=== PATIENT | female | born 1930 | race Caucasian/White ===

== ENCOUNTER 2018-07-14 09:07 | Emergency (ER) | payer MEDICARE ==
[2018-07-14 09:54] LABS: #Eosinphils 0.1 thou/uL (0.0-0.7); #Lymphocytes 2.3 thou/uL (1.20-3.40); #Monocytes 0.7 thou/uL (0.11-0.59); #Neutrophils 6.7 thou/uL (1.40-6.50); %Basophils 0.2 % (0.0-1.0); %Eosinophils 0.7 % (0.0-10.0); %Lymphocytes 23.6 % (21.0-51.0); %Monocytes 6.9 % (0.0-10.0); %Neutrophils 68.6 % (42.0-75.0); Hemoglobin 13.8 g/dL (12.0-16.0); Mean Corpuscular HGB CONC 33.4 g/dL (32.0-36.0); Mean Corpuscular Hemoglobin 29.6 pg (27.0-31.0); Mean Corpuscular Volume 88.6 fL (78.0-98.0); Mean Platelet Volume 7.6 fL (7.4-10.4); Platelet Count 239 thou/uL (130-400); RBC Distribution Width 13.7 % (11.5-14.5); Red Blood Cell (RBC) Count 4.65 mill/uL (4.20-5.40); White Blood Cell (WBC) Count 9.7 thou/uL (4.8-10.8)
[2018-07-14 10:15] LABS: Bilirubin Negative (Negative); Blood, Urine Small (Negative); Clarity CLOUDY (Clear); Glucose, Urine (Dipstick) Negative (Negative); Leukocyte Large (Negative); Nitrite Positive (Negative); Protein, Urine (Dipstick) Negative (Neg-Trace); Specific Gravity, Urine 1.008 (1.002-1.036); Urobilinogen 0.2 mg/dL (0.2-1.0); pH, Urine 6.5 (5.0-9.0)
[2018-07-14 10:18] LABS: Bacteria/HPF 4+ HPF (None Seen); Hyaline Casts/LPF 0-3 HYALINE CAST LPF (0-3 Hyaline); Squamous Epithelial None Seen HPF (0-3)
[2018-07-14 10:22] LABS: ALT (SGPT) 14 U/L (8-55); AST (SGOT) 15 U/L (5-34); Alkaline Phosphatase 90 U/L (40-150); Anion Gap 14 mmol/L (10-20); BUN (Urea Nitrogen) 20 mg/dL (9.8-20.1); Bilirubin, Total 0.4 mg/dL (0.2-1.2); CKMB 1.5 ng/mL (0-6.6); Calc. Creatinine Clearance 0 mL/min (70-130); Calcium 9.2 mg/dL (7.8-10.44); Carbon Dioxide 21 mmol/L (23-31); Chloride 108 mmol/L (98-107); Estimated GFR-MDRD 62; Globulin 3.4 g/dL (2.4-3.5); Glucose 134 mg/dL (83-110); Magnesium 2.1 mg/dL (1.6-2.6); Potassium 4.4 mmol/L (3.5-5.1); Protein, Total 7.4 g/dL (6.0-8.3); Sodium 139 mmol/L (136-145); Troponin I Less than 0.010 ng/mL (< 0.028)
--- NOTE | 2018-07-14 10:22 | RAD ---
CHEST PA AND LATERAL: History: 87-year-old female with history of malaise, vertigo, and URI. History of hypertension. FINDINGS: Heart size is normal. Atherosclerosis of the aorta. Pedicle screw and kevin stabilize the lumbar spine, incompletely seen on this study. There is some abnormal opacity in the region of the right renal upp er collecting system. If the patient has not had any prior intravenous contrast media, then I would p ropose that this is probably related to a large Staghorn calculus. IMPRESSION: No significant acute intrathoracic disease. Atherosclerosis of the aorta. Abnormal opacification of t he right renal upper collecting system, assuming that the patient has not had prior IV contrast, this probably represents a large Staghorn calculus. POS: [facility]
[2018-07-14] MEDS ORDERED: cefTRIAXone\\ROCEPHIN 2 GM VIAL ONE (10:28)
[2018-07-14] MEDS ORDERED: Metoprolol Tartrate 50 MG TAB ONE (10:29)
[2018-07-14] MEDS ORDERED: Metoprolol Tartrate 25 MG TAB ONE (10:44)
== END 2018-07-14 11:18 | disposition home or self-care (01) ==
LOC: ERS 09:07
DX: N39.0 Urinary tract infection, site not specified (principal); N20.0 Calculus of kidney; K21.9 Gastro-esophageal reflux disease without esophagitis; E78.5 Hyperlipidemia, unspecified; I10 Essential (primary) hypertension; Z79.899 Other long term (current) drug therapy
CPT/HCPCS: 36415; 71046; 80053; 81003; 81015; 82553; 83735; 84484; 85025; 93005; 96365; J0696

== ENCOUNTER 2018-07-15 10:13 | Inpatient (IN) | payer MEDICARE ==
[2018-07-15 10:52] LABS: #Basophils 0.1 thou/uL (0.0-0.2); #Eosinphils 0.2 thou/uL (0.0-0.7); #Lymphocytes 3.3 thou/uL (1.20-3.40); #Monocytes 0.8 thou/uL (0.11-0.59); #Neutrophils 4.9 thou/uL (1.40-6.50); %Basophils 0.9 % (0.0-1.0); %Monocytes 8.3 % (0.0-10.0); %Neutrophils 52.8 % (42.0-75.0); Hemoglobin 13.4 g/dL (12.0-16.0); Mean Corpuscular HGB CONC 31.9 g/dL (32.0-36.0); Mean Corpuscular Hemoglobin 27.8 pg (27.0-31.0); Mean Corpuscular Volume 87.4 fL (78.0-98.0); Mean Platelet Volume 7.3 fL (7.4-10.4); Platelet Count 251 thou/uL (130-400); RBC Distribution Width 12.9 % (11.5-14.5); Red Blood Cell (RBC) Count 4.81 mill/uL (4.20-5.40); White Blood Cell (WBC) Count 9.2 thou/uL (4.8-10.8)
[2018-07-15 11:16] LABS: ALT (SGPT) 13 U/L (8-55); AST (SGOT) 17 U/L (5-34); Albumin 3.9 g/dL (3.4-4.8); Alkaline Phosphatase 83 U/L (40-150); Anion Gap 13 mmol/L (10-20); BUN (Urea Nitrogen) 13 mg/dL (9.8-20.1); Bilirubin, Total 0.5 mg/dL (0.2-1.2); Calc. Creatinine Clearance 0 mL/min (70-130); Calcium 9.2 mg/dL (7.8-10.44); Carbon Dioxide 24 mmol/L (23-31); Chloride 106 mmol/L (98-107); Estimated GFR-MDRD 58; Globulin 3.4 g/dL (2.4-3.5); Glucose 134 mg/dL (83-110); Protein, Total 7.3 g/dL (6.0-8.3); Sodium 139 mmol/L (136-145)
[2018-07-15] MEDS ORDERED: Diltiazem 125 MG/25 ML ONE (11:32)
[2018-07-15 12:15] LABS: Magnesium 2.2 mg/dL (1.6-2.6)
[2018-07-15 12:19] LABS: CKMB 1.7 ng/mL (0-6.6); Troponin I Less than 0.010 ng/mL (< 0.028)
--- NOTE | 2018-07-15 12:26 | RAD ---
PORTABLE CHEST: HISTORY: Mental status post change. FINDINGS: Lungs are clear. No infiltrate or vascular congestion. Heart size upper normal. IMPRESSION: No acute lung process. POS: [facility]
--- NOTE | 2018-07-15 12:47 | CT ---
CT BRAIN WITHOUT CONTRAST: HISTORY: Dizziness, hypertension, altered mental status, slurred speech. FINDINGS: Slurred speech. FINDINGS: There are changes of chronic small-vessel ischemic disease in the periventricular white matter. The ventricular size is appropriate and the basilar cisterns patent. No evidence of infarct, hemorrhage, midline shift, or abnormal extraaxial fluid collections is seen The bony calvarium is intact. Ther e is mucosal disease in the paranasal sinuses. IMPRESSION: No CT evidence of acute intracranial process. POS: [facility]
[2018-07-15 14:45] LABS: Troponin I Less than 0.010 ng/mL (< 0.028)
[2018-07-15] MEDS ORDERED: Labetalol HCl 100 MG/20 ML VIAL SLOW IVP PRN (15:16)
[2018-07-15] MEDS ORDERED: cloNIDine 0.1 MG TAB PO PRN (15:16)
[2018-07-15] MEDS ORDERED: hydrALAZINE 20 MG/ML VIAL SLOW IVP PRN (15:16)
[2018-07-15] MEDS ORDERED: Senokot S 8.6-50 MG TAB PO PRN (15:20)
[2018-07-15] MEDS ORDERED: Calcium Carbonate 500 MG ChewTAB PO PRN (15:20)
[2018-07-15] MEDS ORDERED: Acetaminophen 325 MG TAB PO PRN (15:20)
[2018-07-15] MEDS ORDERED: Bisacodyl 5 MG TAB PO PRN (15:20)
[2018-07-15] MEDS ORDERED: HYDROcodone/Acetaminophen 5/325 mg Tablet PO PRN (15:20)
[2018-07-15] MEDS ORDERED: Ondansetron PF 4 MG/2 ML Vial IVP PRN (15:20)
--- NOTE | 2018-07-15 16:07 | HP ---
DATE OF ADMISSION: 07/15/2018 PRIMARY CARE PHYSICIAN: Out of town in [place]. CHIEF COMPLAINT: Dizziness, lightheadedness, generalized weakness, and slurred speech. HISTORY OF PRESENT ILLNESS: Ms. Park is a pleasant 87-year-old female with past medical history of coronary artery disease, status post multiple stents, was on Plavix, but does not like to take aspir in, who presented to the emergency room with above-mentioned complaints. History is mainly obtained by the patient herself. Electronic medical records were reviewed in entirety. Care discussed with 2 daughters at bedside. According to Ms. Park and her daughters, she has been feeling poorly for the last week and a half. She has been seen at her primary care physician's office in [place] and then later at Urgent Care. She has been treated for bacterial as well as viral sinusitis and URIs. She has been seen in the [facility] ent Care received a Z-Jered, one shot of steroids last week. She has been having on and off nasal mami estion and generalized weakness and dizziness. She also noted that her blood pressure has been running on the higher side. Normally, her blood pres sure is under better control, but for the last 2-3 days, it is 190s in the morning. She was seen in our emergency room yesterday for complaints of weakness and was found to have a urinary tract infecti on. She received Rocephin injection and was discharged on ciprofloxacin. Her metoprolol dose was in creased to 50 mg twice a day, but she took only 25 this morning. Her blood pressure was noticed to b e 216/92 yesterday. Today in the ER, her blood pressure systolic is still in the 190s. Her workup i ncluding a chest x-ray is rather unremarkable. CT scan of the brain is done in the ER which also machelle ws no acute changes. A chest x-ray done yesterday showed a staghorn calculus in the right upper jennifer l collecting system. She denies any chest pain, palpitation or shortness of breath. This morning her family noticed that she was having a hard time finding the words. The patient states that she knew what she is trying to say, but was having some difficulty getting those words out. She has no paresthesias or muscle weak ness. No vision changes, no ringing sensation. No headache, no nausea, vomiting. She is now being admitted to the hospital to rule out transient ischemic attack and management of unc ontrolled hypertension and treatment of UTI. PAST MEDICAL HISTORY: Hypertension and coronary artery disease status post stents x2. PAST SURGICAL HISTORY: Spinal surgery, cardiac stents total 6. SOCIAL HISTORY: She lives in [place] with her family. No history of drug, tobacco or alcohol abuse. FAMILY HISTORY: Significant for stroke in her brother and mother. Multiple family members with hype rtension. ALLERGIES: ADHESIVE BANDAGE. MEDICATIONS: Plavix 75 mg daily, Crestor 20 mg daily, metoprolol succinate 25 mg daily. REVIEW OF SYSTEMS: A 12-point review of systems was done, it is negative except for those mentioned in the history and physical. CODE STATUS: FULL CODE. Discussed with the patient. LABORATORY DATA: CBC is unremarkable. Serum chemistries unremarkable. Blood sugar 134, magnesium i s normal. Cardiac enzymes normal. Creatinine kinase is normal. Lipase normal. Chest x-ray by my v[facility] mcneil has no evidence to suggest any acute cardiopulmonary abnormality. CT scan of the brain is nega tive for any acute changes. No hemorrhage. A 12-lead EKG by my review shows normal sinus rhythm at 74 beats per minute. PHYSICAL EXAMINATION: VITAL SIGNS: Upon presentation to the ER today: Blood pressure 195/67, pulse of 78, respirations 19 , saturating 96% on room air, temperature 98.2. GENERAL: No acute distress, awake, alert x3. HEENT: Mucous membrane is moist and pink. No oropharyngeal exudate or erythema. Head is normocepha lic, atraumatic. Pupils equal, reactive to light and accommodation. Extraocular movement intact. NECK: Supple without any lymphadenopathy, JVD or bruit. CHEST: Clear to auscultation without any wheezing, rales or rhonchi. Rhythm is regular without any murmur, rubs or gallops. ABDOMEN: Soft, nontender, nondistended, positive bowel sounds. EXTREMITIES: Free of any cyanosis, clubbing, or edema. NEUROLOGIC: She has no slurring of speech at this time. However, some difficulty finding the words is noticed. She does not qualify to be called expressive aphasia. Tnumyo-ez-zeof testing is intact. Muscle strength is 5/5 in all 4 extremities. Sensation is intact. SKIN: Free of any rashes or bruises. IMPRESSION AND PLAN: 1. Slurred speech, transient ischemic attack cannot be ruled out. The patient definitely has multip le risk factors. She has received aspirin in the emergency room and we will continue that for now. We will obtain an MRI of the brain as well as carotid Doppler and transthoracic echocardiogram for st roke workup. She will continue her Crestor for now. We have also consulted Neurology for further re commendations. 2. Urinary tract infection. The patient was found to have a staghorn calculus on the right renal sy stem yesterday on the chest x-ray. We will get a renal ultrasound to further assess this. We will s tart her on IV antibiotics, namely ciprofloxacin and send the urine collected yesterday: for culture. 3. Uncontrolled hypertension and hypertensive urgency. Etiology is unclear. This can be precipitat ed by sinusitis or transient ischemic attack. At this time, we will add p.r.n. antihypertensives and restart her metoprolol at a higher dose of 50 mg twice a day. 4. History of coronary artery disease. Restart home medications and reconcile once confirmed. 5. Code status: FULL CODE. Discussed with the patient. DISPOSITION: Mrs. Park is currently being admitted to the hospital for TIA like symptoms and hyper tensive urgency. Further management will depend upon her clinical course, but estimated length of st ay at this time is less than 2 midnights.
[2018-07-15 16:56] VITALS: BMI 31.4
--- NOTE | 2018-07-15 16:58 | ULT ---
ULTRASOUND RETROPERITONEUM COMPLETE: (RENAL) 07/15/2018 HISTORY: An 87-year-old female with calculus of kidney. COMPARISON: No prior CTs or ultrasounds of the abdomen. FINDINGS: There are numerous hyperechoic foci in the right kidney, including moderate-sized ones in the renal p dilshad, with strong shadowing, plus much smaller ones in the regions of the right renal calices, at th e upper, mid, and lower poles. These are consistent with multiple calculi. No definite such calculu s is identified in the contralateral left kidney. Urinary bladder volume is 275 mL at the time of th is scan. Bladder wall thickness is normal. Bilateral ureteral jets are visualized. There is no hydr onephrosis. The right kidney is 9.5 x 4.5 x 5 cm. The left kidney is 9.5 x 4.5 x 5 cm. IMPRESSION: 1. Extensive right-sided nephrolithiasis (numerous right renal calculi). 2. No hydronephrosis. 3. Noncontrast CT of abdomen and pelvis would be much better able to demonstrate the degree of nephr olithiasis bilaterally. DAVID Trejo POS: [facility]
--- NOTE | 2018-07-15 17:00 | ULT ---
BILATERAL CAROTID DUPLEX ULTRASOUND INCLUDING COLOR AND SPECTRAL DOPPLER IMAGING: HISTORY: Slurred speech. TIA. FINDINGS: There is a visual plaque in the distal CCAs and proximal ICAs bilaterally. PSV right ICA is 89 cm per second. EDV is 24 cm per second. ICA/CCA ratio is 1. PSV LEFT ICA IS 93 cm per second. EDV is 23 cm per second. ICA/CCA ratio is 1.2. Vertebral flow is antegrade. IMPRESSION: 1. No hemodynamically significant stenosis. 2. Minimal increased velocities in both right and left external carotid arteries. 3. Bilateral visual plaque, evidence for carotid arterial vascular disease. POS: [facility]
[2018-07-15 18:08] LABS: Troponin I Less than 0.010 ng/mL (< 0.028)
--- NOTE | 2018-07-15 18:42 | CON ---
DATE OF CONSULTATION: 07/15/2018 IMPRESSION: 1. Transient ischemic attack with transient dysarthria and right facial droop. 2. Hypertension. 3. Recent urinary tract infection. 4. Diarrhea, likely secondary to new onset of treatment with antibiotics. PLAN: 1. Echocardiogram. 2. Review carotid Doppler. 3. Continue aspirin has been instituted. 4. Continue Plavix and statin as she came in with. Ms. Park is an 87-year-old white female with a known history of hypertension. She has had 2 episod es that both occurred in the morning. Her daughter reports that she saw right facial droop and assoc iated with slurred speech. She had difficulty maintaining her balance. She reported some numbness i n her right hand. Her symptoms lasted somewhere between 1 and 2 hourly. She came to the emergency r oom yesterday and was diagnosed with urinary tract infection. She was discharged home on antibiotics . This morning, she had a similar episode with approximately the same duration of symptoms. She was seen in the emergency room this morning and had a CT scan of the brain done which was unremarkable. She has had some labile hypertension recorded over the last 2 days. PAST MEDICAL HISTORY: As listed above. ALLERGIES: LATEX. SOCIAL HISTORY: No tobacco or alcohol use. FAMILY HISTORY: Noncontributory. MEDICATION LIST: Reviewed. REVIEW OF SYSTEMS: No complaint of headache, nausea, vomiting, vertigo, chest pain, shortness of true ath. PHYSICAL EXAMINATION: GENERAL: She is a well-nourished elderly lady, in no acute distress. VITAL SIGNS: Have not been recorded. HEENT: Pupils equal. Conjunctivae clear. Oropharynx clear. NECK: Supple. EXTREMITIES: No cyanosis, clubbing, or edema. NEUROLOGIC: She is alert and appropriate. Her speech is fluent and clear. Her exam is nonfocal. SUMMARY: Elderly lady with hypertension who presents with 2 similar episodes of transient right-side d weakness. I agree with starting her on aspirin. Her carotid ultrasound has been performed, but e results are pending. Echocardiogram has been ordered. I would be happy to follow up if you have any further questions.
[2018-07-15] MEDS: Heparin 5,000 UNITS/ML VIAL SC SCH (19:17)
[2018-07-15] MEDS: Metoprolol Tartrate 50 MG TAB PO SCH (19:17)
[2018-07-15] MEDS: Ciprofloxacin Lactate/D5W 200 MG in Premix Bag 1 BAG IVPB SCH (19:18)
[2018-07-16 05:29] LABS: #Basophils 0.1 thou/uL (0.0-0.2); #Eosinphils 0.2 thou/uL (0.0-0.7); #Neutrophils 4.1 thou/uL (1.40-6.50); %Basophils 0.8 % (0.0-1.0); %Eosinophils 1.8 % (0.0-10.0); %Lymphocytes 42.6 % (21.0-51.0); %Monocytes 10.3 % (0.0-10.0); %Neutrophils 44.4 % (42.0-75.0); Hemoglobin 13.2 g/dL (12.0-16.0); Mean Corpuscular HGB CONC 34.1 g/dL (32.0-36.0); Mean Corpuscular Hemoglobin 29.7 pg (27.0-31.0); Mean Corpuscular Volume 87.2 fL (78.0-98.0); Mean Platelet Volume 7.7 fL (7.4-10.4); Platelet Count 224 thou/uL (130-400); RBC Distribution Width 13.5 % (11.5-14.5); Red Blood Cell (RBC) Count 4.45 mill/uL (4.20-5.40); White Blood Cell (WBC) Count 9.3 thou/uL (4.8-10.8)
[2018-07-16 05:52] LABS: Anion Gap 13 mmol/L (10-20); BUN (Urea Nitrogen) 11 mg/dL (9.8-20.1); Calc. Creatinine Clearance 56 mL/min (70-130); Calcium 9.4 mg/dL (7.8-10.44); Carbon Dioxide 27 mmol/L (23-31); Chloride 107 mmol/L (98-107); Estimated GFR-MDRD 66; Glucose 111 mg/dL (83-110); Potassium 4.1 mmol/L (3.5-5.1); Sodium 143 mmol/L (136-145)
[2018-07-16] MEDS: Heparin 5,000 UNITS/ML VIAL SC SCH ×3 (08:26→21:02)
[2018-07-16] MEDS: Metoprolol Tartrate 50 MG TAB PO SCH ×2 (08:27→21:01)
[2018-07-16] MEDS: Aspirin 325 mg Enteric Coated Tablet PO SCH (08:27)
[2018-07-16] MEDS: Saccharomyces boulardii 250 MG CAP PO SCH (08:28)
[2018-07-16] MEDS: Ciprofloxacin Lactate/D5W 200 MG in Premix Bag 1 BAG IVPB SCH ×2 (08:28→21:02)
[2018-07-16] MEDS ORDERED: Clopidogrel Bisulfate 75 MG TAB PO SCH (11:45)
[2018-07-16] MEDS ORDERED: Rosuvastatin 20 MG TAB PO SCH (11:45)
--- NOTE | 2018-07-16 12:45 | MRI ---
MRI BRAIN WITHOUT CONTRAST: HISTORY: TIA. COMPARISON: A brain CT of prior day. FINDINGS: On the susceptibility weighted imaging sequence there are punctate foci of diffusion restriction conf irmed on the ADC map within the left felipe. This involves the anterior and posterior felipe from the de ep penetrating branches of the basilar artery. There are extensive microvascular ischemic changes throughout the subcortical and deep white matter. Prominent Virchow-Montgomery spaces bilaterally. No hydrocephalus. On the susceptibility weighted imaging sequence, there are no abnormal areas of he morrhage. 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 POS: [facility]
--- NOTE | 2018-07-16 13:37 | CT ---
CT ABDOMEN AND PELVIS WITHOUT CONTRAST STONE PROTOCOL: HISTORY: Urinary tract infection. Calculi. COMPARISON: Renal ultrasound of prior day. FINDINGS: There are calcified right infrahilar lymph nodes as well as calcified granuloma right lung base. No pericardial effusion. Moderate atherosclerotic plaque in the aorta. There is casting of the right renal collecting system with calcifications involving nearly the entire right-sided renal collecting system. No left-sided renal calculi are appreciated. No right-sided u reteral calculus is appreciated. No left-sided ureteral calculus is appreciated. No significant atrophy of the right kidney. Multiple calcified granulomas of the spleen. The pancreas, liver, and gallbladder have a relatively noncontrast appearance aside from multiple monae cified granulomas of the liver. No retroperitoneal adenopathy. No dilated loops of large or small bowel. Focal area of skin thickening over the right lower hemiabdomen. Appendix is felt to be visualized and is normal. No retroperitoneal adenopathy. Posterior spinal fusion hardware L3-L5. IMPRESSION: Near-complete casting of the right renal collecting system due to calculus, a very large single calcu aki. There is extension of calcification throughout the renal collecting system as well as the renal pelvis without significant hydronephrosis. No ureteral calculus. No left-sided renal calculus. Th e right renal collecting system casting indicates a staghorn calculus. POS: [facility]
--- NOTE | 2018-07-16 14:25 | PDOC.PN ---
- Subjective Encounter Start Date: 07/16/18 Encounter Start Time: 11:00 Subjective: f/u on CVA rule out -: Patient states weakness on her right side is worse today - Objective Resuscitation Status: Resuscitation Status FULL:Full Resuscitation Vital Signs & Weight: Vital Signs (12 hours) Temp Pulse Resp BP Pulse Ox 07/16/18 11:00 98 F 71 16 163/72 H 92 L 07/16/18 07:00 98.5 F 73 18 140/62 93 L 07/16/18 02:32 98.0 F 75 21 H 172/75 H 95 Weight Weight 72.847 kg I&O: 07/15/18 07/16/18 07/17/18 06:59 06:59 06:59 Intake Total 850 100 Output Total 1400 Balance -550 100 Result Diagrams: 07/16/18 04:50 07/16/18 04:50 Phys Exam - Physical Examination Constitutional: NAD HEENT: PERRLA, moist MMs Neck: no nodes, no JVD Respiratory: no wheezing, no rales, no rhonchi Cardiovascular: RRR, no significant murmur Gastrointestinal: soft, non-tender Musculoskeletal: no edema, pulses present right sided facial droop, slurred speech, weakness to right arm and leg Lymphatic: no nodes Psychiatric: normal affect, A&O x 3 Skin: no rash, normal turgor Dx/Plan (1) Left-sided cerebrovascular accident (CVA) Code(s): I63.9 - CEREBRAL INFARCTION, UNSPECIFIED Status: Acute (2) UTI (urinary tract infection) Status: Acute (3) Staghorn calculus Code(s): N20.0 - CALCULUS OF KIDNEY Status: Chronic (4) Hypertension Code(s): I10 - ESSENTIAL (PRIMARY) HYPERTENSION Status: Chronic - Plan -: MRI today showed multi-focal anterior/posterior left sided pontine infarct -: Changed to inpatient status, consulted stroke team -: Dr. Aguirre saw patient yesterday, is following -: Patient desires inpatient rehab, screening order entered UTI- will continue antibiotics, will await S/S for culture, has multiple calculi in right kidney, no evidence of obstruction Will continue to monitor VS and labs * .
--- NOTE | 2018-07-16 16:16 | PDOC.EVN ---
Event Note - Event Note Event Note: Reviewed chart, saw patient. Collaborated with Padma Obriant OFFSET ASSISTANT PRESS OPERATOR. Agree with assessment and plan as documented. Discussed with family, updated them.
[2018-07-17] MEDS: Aspirin 325 mg Enteric Coated Tablet PO SCH (09:33)
[2018-07-17] MEDS: Clopidogrel Bisulfate 75 MG TAB PO SCH (09:33)
[2018-07-17] MEDS: Heparin 5,000 UNITS/ML VIAL SC SCH ×2 (09:33→21:34)
[2018-07-17] MEDS: Metoprolol Tartrate 50 MG TAB PO SCH ×2 (09:33→21:34)
[2018-07-17] MEDS: Rosuvastatin 20 MG TAB PO SCH (09:33)
[2018-07-17] MEDS: Saccharomyces boulardii 250 MG CAP PO SCH (09:33)
[2018-07-17] MEDS: Ciprofloxacin Lactate/D5W 200 MG in Premix Bag 1 BAG IVPB SCH ×2 (09:33→21:34)
[2018-07-17 09:37] LABS: ALT (SGPT) 16 U/L (8-55); AST (SGOT) 23 U/L (5-34); Albumin 4.1 g/dL (3.4-4.8); Alkaline Phosphatase 90 U/L (40-150); Anion Gap 14 mmol/L (10-20); BUN (Urea Nitrogen) 14 mg/dL (9.8-20.1); Bilirubin, Total 0.6 mg/dL (0.2-1.2); Calc. Creatinine Clearance 50 mL/min (70-130); Calcium 9.4 mg/dL (7.8-10.44); Carbon Dioxide 23 mmol/L (23-31); Chloride 106 mmol/L (98-107); Estimated GFR-MDRD 58; Globulin 3.4 g/dL (2.4-3.5); Glucose 152 mg/dL (83-110); Magnesium 2.1 mg/dL (1.6-2.6); Potassium 4.1 mmol/L (3.5-5.1); Protein, Total 7.5 g/dL (6.0-8.3); Sodium 139 mmol/L (136-145)
--- NOTE | 2018-07-17 14:52 | PDOC.PN ---
- Subjective Encounter Start Date: 07/17/18 (f/u stroke) Encounter Start Time: 14:50 Subjective: Pt and family note increasing weakness, balance problems and worsening -: of speech - new today. Also noticed swelling of right arm and coughing - Objective Resuscitation Status: Resuscitation Status FULL:Full Resuscitation Vital Signs & Weight: Vital Signs (12 hours) Temp Pulse Pulse Resp BP BP BP 07/17/18 11:29 98.6 F 66 16 137/64 07/17/18 09:08 78 129/61 07/17/18 08:40 07/17/18 07:34 97.9 F 71 16 120/63 07/17/18 04:00 98.5 F 71 16 127/60 Pulse Ox 07/17/18 11:29 92 L 07/17/18 09:08 07/17/18 08:40 97 07/17/18 07:34 97 07/17/18 04:00 94 L Weight Weight 160 lb 9.6 oz I&O: 07/16/18 07/17/18 07/18/18 06:59 06:59 06:59 Intake Total 850 100 940 Output Total 1400 Balance -550 100 940 Result Diagrams: 07/16/18 04:50 07/17/18 08:47 EKG Reviewed by me: Yes (sinus 78, V tach 17 beats and 6 beats) Phys Exam - Physical Examination Constitutional: NAD Respiratory: no wheezing, no rales, no rhonchi, clear to auscultation bilateral Cardiovascular: RRR, no significant murmur Gastrointestinal: soft, non-tender, no distention, positive bowel sounds Musculoskeletal: no edema decreased strength RUE - 3+/5, and RLE 4-/5 no ankle clonus Deviation from normal: speech slowed Skin: no rash Dx/Plan (1) Stroke Code(s): I63.9 - CEREBRAL INFARCTION, UNSPECIFIED Status: Acute Qualifiers: CVA mechanism: occlusion Precerebral and cerebral artery: unspecified cerebral artery Qualified Code(s): I63.50 - Cerebral infarction due to unspecified occlusion or stenosis of unspecified cerebral artery (2) CAD (coronary artery disease) Code(s): I25.10 - ATHSCL HEART DISEASE OF [place] CORONARY ARTERY W/O ANG PCTRS Status: Chronic (3) UTI (urinary tract infection) Status: Acute Qualifiers: Urinary tract infection type: acute cystitis Hematuria presence: without hematuria Qualified Code(s): N30.00 - Acute cystitis without hematuria (4) Hypertension Code(s): I10 - ESSENTIAL (PRIMARY) HYPERTENSION Status: Chronic Qualifiers: Hypertension type: essential hypertension Qualified Code(s): I10 - Essential (primary) hypertension (5) Staghorn calculus Code(s): N20.0 - CALCULUS OF KIDNEY Status: Chronic (6) Tachyarrhythmia Code(s): R00.0 - TACHYCARDIA, UNSPECIFIED Status: Acute - Plan * worsening neurologic status - stat CT brain without contrast. With this result, will contact Dr. Aguirre * Pt is on dual anti-platelet therapy and statin * bp controlled * staghorn calculus with UTI - urology evaluation * Tachyarrhythmia - echo unremarkable, consult cardiology * RUE edema - mild - check ultrasound to rule out DVT * * dvt prophy - scd's. Given that pt is on dual antiplatelet therapy, I'm concerned about increasing the risk of bleeding with pharmacologic dvt prophy - will discuss with Dr. Aguirre * gi prophy - not indicated * code status full * * reviewed plan of care with patient/family, no questions or further needs at end of eval * pt remains at high risk in current condition * recommend hold on transfer to inpatient until Cardiology eval, Urology eval, and CT scan results with plan for stroke risk reduction. 21:35 - negative CT scan earlier. Called and discussed patient iwth Dr. Aguirre around 16:00 with regards to change reported in neuro status, CT results. He reports that it can be an evolving stroke. Discussed dual anti- platelet tx with plavix and aspirin - he recommends continuing it. Also discussed DVT prophy with heparin and the risks/benefits - in discussion the benefits outweigh the risks and started this back. Called and spoke with the patient's daughter around 17:30 all of the above. discussed that I'm uncertain of how her neurologic status will go - if it will get better, worse or stay the same. . . and that right now we are managing the uncertainty and using medications to stabilize the stroke and reduce the risk of recurrent stroke. No questions at end of call. No other changes to the plan outlined above.
--- NOTE | 2018-07-17 15:17 | CT ---
BRAIN CT WITHOUT IV CONTRAST: HISTORY: An 87-year-old female with a history of worsening ataxia. COMPARISON: CT 07/15/2018 and brain MRI 07/16/2018. FINDINGS: Stable atrophy and chronic white matter ischemic changes. Developing more well-defined low-attenuati on foci within the felipe, evidence for acute pontine infarcts which were described on the MRI of 07/16. No evidence for acute hemorrhage. IMPRESSION: Evolving pontine infarcts when compared to the 07/15/2018 CT. Prior MRI demonstrated acute pontine i nfarcts. No evidence for a new mass or bleed. POS: LAURIE
--- NOTE | 2018-07-17 16:28 | PRG ---
DATE OF SERVICE: 07/17/2018 Ms. Park continues to report some problems with control of the right arm and leg. She was unable t o walk unassistedly, is not having any swallowing difficulties. Vital signs have been stable. Her MRI of the brain confirmed a pontine infarct. Her echocardiogram shows a normal ejection fraction of 60-65%. It appears that the patient will need inpatient rehabili tation until she is able to get her balance back. I agree with her current medication list and would be available if you have any further questions.
--- NOTE | 2018-07-17 17:31 | PDOC.PN ---
- Subjective Encounter Start Date: 07/16/18 Encounter Start Time: 15:00 (late entry) Pt seen re: weakness. feels better. - Objective Resuscitation Status: Resuscitation Status FULL:Full Resuscitation MAR Reviewed: Yes Vital Signs & Weight: Vital Signs (12 hours) Temp Pulse Pulse Resp BP BP Pulse Ox 07/17/18 15:48 98.5 F 74 18 154/91 H 92 L 07/17/18 11:29 98.6 F 66 16 137/64 92 L 07/17/18 09:08 78 129/61 07/17/18 08:40 97 07/17/18 07:34 97.9 F 71 16 120/63 97 Weight Weight 160 lb 9.6 oz I&O: 07/16/18 07/17/18 07/18/18 06:59 06:59 06:59 Intake Total 850 100 940 Output Total 1400 Balance -550 100 940 Result Diagrams: 07/16/18 04:50 07/17/18 08:47 EKG Reviewed by me: Yes (Tele: NSR) Phys Exam - Physical Examination Constitutional: NAD HEENT: moist MMs Neck: supple Respiratory: clear to auscultation bilateral Cardiovascular: RRR Gastrointestinal: soft Neurological: moves all 4 limbs Psychiatric: normal affect Dx/Plan (1) Weakness Code(s): R53.1 - WEAKNESS Status: Acute Comment: secondary to stroke, workup in progress - Plan * . Reviewed chart, saw patient. Collaborated with Padma Brito SERVICES CLERK. Agree with assessment and plan as documented. Review of Systems - Medications/Allergies Allergies/Adverse Reactions: Allergies Allergy/AdvReac Type Severity Reaction Status Date / Time Latex, Natural Rubber Allergy Verified 07/15/18 16:01 ADHESIVE BANDAGE Allergy Uncoded 07/15/18 15:44 Medications: Current Medications Acetaminophen (Tylenol) 650 mg PO Q4H PRN PRN Reason: Headache/Fever/Mild Pain (1-3) Hydrocodone Bitart/Acetaminophen ([place] 5/325) 1 tab PO Q4H PRN PRN Reason: Moderate Pain (4-6) Aspirin (Ecotrin) 325 mg PO DAILY ЕЛЕНА Last Admin: 07/17/18 09:33 Dose: 325 mg Bisacodyl (Dulcolax) 10 mg PO DAILYPRN PRN PRN Reason: Constipation Calcium Carbonate (Tums) 1,000 mg PO Q4H PRN PRN Reason: Heartburn or Indigestion Clonidine (Catapres) 0.1 mg PO Q4H PRN PRN Reason: SBP>160 Clopidogrel Bisulfate (Plavix) 75 mg PO DAILY ON LICENSE OF [facility] Last Admin: 07/17/18 09:33 Dose: 75 mg Heparin Sodium (Porcine) (Heparin) 5,000 units SC TID ON LICENSE OF [facility] Hydralazine HCl (Apresoline) 10 mg SLOW IVP Q4H PRN PRN Reason: SBP>170 Ciprofloxacin/Dextrose 200 mg/ (Device) 100 mls @ 100 mls/hr IVPB Q12HR ON LICENSE OF [facility] Last Admin: 07/17/18 09:33 Dose: 100 mls Labetalol HCl (Normodyne) 10 mg SLOW IVP Q4H PRN PRN Reason: SBP Greater Than 180 Metoprolol Tartrate (Lopressor) 50 mg PO BID ON LICENSE OF [facility] Last Admin: 07/17/18 09:33 Dose: 50 mg Ondansetron HCl (Zofran) 4 mg IVP Q6H PRN PRN Reason: Nausea/Vomiting Rosuvastatin Calcium (Crestor) 20 mg PO DAILY ON LICENSE OF [facility] Last Admin: 07/17/18 09:33 Dose: 20 mg Saccharomyces Boulardii (Florastor) 250 mg PO DAILY ON LICENSE OF [facility] Last Admin: 07/17/18 09:33 Dose: 250 mg Senna/Docusate Sodium (Senokot S) 2 tab PO BID PRN PRN Reason: Constipation
--- NOTE | 2018-07-17 19:45 | ULT ---
RIGHT UPPER EXTREMITY VENOUS ULTRASOUND WITH DOPPLER: History: Edema, swelling. Comparison: None. Technique: Grayscale, color flow, doppler imaging with spectral waveform analysis of the right upper extremity venous system. FINDINGS: There is compressibility and patency in the jugular vein. Subclavian vein is patent. The axillary vei n, brachial vein, basilic vein, cephalic vein, radial vein and ulnar vein compress and are patent. IMPRESSION: No evidence of thrombus in the right upper extremity venous system. POS: LAURIE
--- NOTE | 2018-07-18 01:56 | CON ---
DATE OF CONSULTATION: 07/17/2018 REASON FOR CONSULTATION: Right staghorn calculus. HISTORY OF PRESENT ILLNESS: Ms. Park is an 87-year-old female who is visiting [facility]. She lives with her daughters in [place]. She presented to the emergency room a couple of days ago with symptoms suggestive of a CVA. She underwent evaluation in the emergency room and had a urine test performed that demonstrated bacteria. She was treated for urinary tract infection and discharged. She returned to the hospital on 07/15/2018 with similar symptoms. These symptoms included facial droop and overall just not feeling well. She was admitted to the hospital for evaluation for possible CVA. As part of her workup, a CT scan was performed. The CT scan demonstrates a staghorn calculus in the right kidney. There is no evidence of hydronephrosis. Her prior urologic history does include kidney stone disease and she did have a stone surgery 5 to 6 years ago. She has not had any issues with urinary tract infections, other than the recently diagnosed from. It should be noted when she was diagnosed with urinary tract infection several days ago, she was not complaining of any fever, chills, flank pain or dysuria. The urine test was performed as a part of routine evaluation in the emergency room. There have been no chronic problems with urinary tract infections, nor flank pain. PAST MEDICAL HISTORY: Hypertension, coronary artery disease. PAST SURGICAL HISTORY: Coronary stent placement, spine surgery, kidney stone surgery. SOCIAL HISTORY: She is a nonsmoker, denies excessive alcohol use. She lives with her family in [place]. FAMILY HISTORY: Significant for a CVA in her brother and her mother. ALLERGIES: ADHESIVE TAPE. CURRENT MEDICATIONS: Plavix 75 mg, Crestor 20 mg, metoprolol 25 mg. REVIEW OF SYSTEMS: Respiratory: No shortness of breath. Cardiovascular: Denies chest pain or palpitations. Gastrointestinal: Denies chronic constipation, diarrhea. Genitourinary: Please see history of present illness. Neurologic: Please see history of present illness. Admission laboratory included normal creatinine. PHYSICAL EXAMINATION: VITAL SIGNS: Temperature 98.5, blood pressure 154/91, pulse 74, O2 saturation 92% on room air. GENERAL: She is awake and alert. She is in no distress at this time. HEENT: Normocephalic, atraumatic. NECK: Supple, without masses. CHEST: Clear to auscultation. CARDIOVASCULAR: Regular rate and rhythm. ABDOMEN: Soft, nontender. No palpable masses. Liver and spleen are palpable. No abdominal tenderness noted. IMAGING STUDIES: CT scan demonstrates a staghorn calculus right kidney without evidence of obstruction. No ureteral stones seen. Microbiology, Escherichia coli, urinary tract infection diagnosed 07/14/2018, sensitive to all antibiotics tested. IMPRESSION: Ms. Park is an asymptomatic right staghorn calculus. She has recently been diagnosed with an asymptomatic urinary tract infection, is receiving treatment at this time. She has not had problems with her recurrent flank pain, fever, chills or symptomatic urinary tract infections. I agree with current antibiotic therapy and did not recommend any intervention at this time for the staghorn calculus. The patient follow up with her urologist when she returns home. Copy of her CT scan report has been given to her. I have discussed this with her daughter. RECOMMENDATIONS: Agree with antibiotic therapy. No intervention for stone at this time. JEANE
--- NOTE | 2018-07-18 03:48 | CON ---
DATE OF ADMISSION: 07/16/2018 DATE OF CONSULTATION: 07/17/2018 INDICATION FOR CONSULTATION: An 87-year-old female with a history of known coronary artery disease, who suffered a CVA, who was found to have episodes of nonsustained ventricular tachycardia. These we re short runs and these were the longest I have noted and it has been about 15 beats, but she also henderson s some about 6 beat runs. She had actually one with 17 beats. She does have a history of coronary a rtery disease, has undergone bypass surgery. She has had no complaints of chest pain since her bypas s surgery. She is followed in [place] by a delinquent account clerk. She has recently had urinary tract infecti on and has been treated with Z-Jered. I believe she also has been placed on Cipro since being here and she may be having some problem with the medications with the antibiotic with Cipro, which is known t o cause occasional PVCs or even torsades in some patients. I would suggest we switched to another me dication if necessary. She has been on beta-blockers in the past. We will continue this medication. This may help suppress some of the nonsustained ventricular tachycardia. Otherwise, she is doing q uite well for the remainder of the physical examination, history, please refer the notes dictated by my nurse practitioner. For the past medical history, social history, family history, review of systems, medications and hemanth rgies, also please note in history of present illness, she did have an echocardiogram performed here which shows a normal ejection fraction. Ejection fraction was 60% to 65% with no evidence of indicat ion for a CVA. She did have a consultation by the neurologist. At this time, she is comfortable and she denies any complaints. PHYSICAL EXAMINATION: GENERAL: Reveals an elderly female who is in no acute distress. She is lying flat in the bed. She appears to be easily arousable. She is awake, and she does answer some questions. Her daughter is n earby and answers most of the questions for her. VITAL SIGNS: Her blood pressure is 133/60, heart rate is 80 and regular, respiratory rate 20. She i s afebrile, O2 saturations 92%. HEENT: Shows the head to be normocephalic and atraumatic. Carotid pulses are present. I did not he ar any bruits. CHEST: Clear to auscultation. I did not hear any rales, rhonchi, or wheezing. CARDIOVASCULAR: Exam reveals a regular rate and rhythm at this time. I did not hear any significant murmurs, heaves, thrills, bruits, or rubs. ABDOMEN: Soft and nontender. Positive bowel sounds are present. There were no masses noted. EXTREMITIES: Showed no clubbing, cyanosis, or edema. NEUROLOGIC: She does have some right-sided weakness and has some mild slurred speech, but otherwise seems to be doing relatively well with her CVA. IMPRESSION: 1. Nonsustained ventricular tachycardia in a patient with known coronary artery disease, who has bee n placed on Cipro for urinary tract infection. At this time, which it may not be related, but in ord er to prevent further incidents or may decrease the incidents of the nonsustained ventricular tachyca rdia with switch to another antibiotic from Cipro if at all possible, otherwise, we will watch her ve ry carefully. We will continue her beta blockers, but this may be the culprit involved with her nons ustained ventricular tachycardia. She denied any chest pain and I suspected her coronary artery dise ase remains stable. At this time, she is not a candidate to undergo further cardiac evaluation as fa r as her coronary disease is concerned and certainly with a normal left ventricular systolic function , she is at low risk of any acute cardiac events despite having the nonsustained ventricular tachycar elizabeth unless she has ischemia and there is no indication that she has had any ischemia. On the EKGs, i t appears that she has a sinus rhythm without any acute ST segment changes. She has some minimal non specific changes, but I do not believe these were indicative of ischemia and she has remained in sinu s rhythm except for the episodes of the nonsustained ventricular tachycardia. 2. Status post cerebrovascular accident where she will be continued to monitor by the Neurology Servi ce. 3. History of urinary tract infection as noted above. 4. Hypertension. This is relatively stable at this time. 5. Generalized weakness. This will also be dealt by the primary care service and most likely she wi ll need to go to rehabilitation after she is released from the hospital. We will be more than happy to see the patient in the future, but I believe she is followed by a delinquent account clerk in [place] and most likely will continue to follow up once she is released from here and returns to her home.
[2018-07-18 05:39] LABS: Cardiac Risk 3.8 (Less than 4.5)
--- NOTE | 2018-07-18 08:15 | CON ---
DATE OF CONSULTATION: 07/17/2018 ROOM NUMBER: [id number]. The patient's primary care physician is in [place]. The patient's primary pipe recovery specialist is Dr. Brayan almazan in [place] at [facility]. The patient's primary care doctor here in the [place] is going to be Dr. Rosemarie Aguilar. The patient's referring doctor is Dr. Deepthi Lomeli. REASON FOR CARDIOLOGY CONSULTATION: A wide complex tachycardia. HISTORY OF PRESENT ILLNESS: Ms. Park is an 87 years old female with significant history of coronary artery disease with status post multiple stents, last one was in 2013, hypertension, and GERD. The patient is from [place] visiting her family for the Thanksgiving. The patient noticed nadine t she was getting weaker and the patient's blood pressure was very elevated and the patient started h aving the symptoms of CVA with right-sided weakness and speech difficulties and last night around mid night and around 2:00 in the morning, the patient has 17 beats and 6 beats of V-tach. During at that time, patient was sleeping very well and the patient did not wake up. The patient was symptomatic d uring that episode. The patient has a significant history of coronary artery disease. The patient h ad a stent placement x4 in 2010. After patient having dual like the pain to the left chest which rad iated to her left shoulder or to the arm. In 2013, she started having similar symptoms and underwent cardiac catheterization with stent placement x3 in 2013 in [place]. She has seen a pipe recovery specialist in [place] once a year. She has been active and she is walking, dancing almost every day without any ca rdiac complaints until this admission. She has seen a GI doctor for a long history of GERD. The kasi hernandez has been on the Plavix; however, she is not on aspirin because the patient's GI doctor discontin ued aspirin because of possible causing worsening of GERD. During the initial Cardiology consult ass essment, the patient denied chest pain or discomfort, dizziness, lightheadedness, palpitations or flu ttering in her chest or any other cardiac complaints. The patient had echocardiogram done on 07/17/2018 with EF of 60-65%, mild mitral valve regurgitation, and mild tricuspid regurgitation. Carotid Doppler study was done on 07/15/2018 with no significant stenosis and according to the patient, the patient has not had any stress test since 2013. Again kasi hernandez has been active dancing, and walking every day and is very active at the [employer] for volunteering without any cardiac complaints. PAST MEDICAL HISTORY: 1. Coronary artery disease, status post stent placement twice last one in 2013 and gag reflex. 2. CVA with right-sided weakness. PAST SURGICAL HISTORY: Lower back surgery and multiple cardiac stent placement. FAMILY HISTORY: The patient's brother due to the CVA. The patient's brother has a myocardi al infarction at the age of 80 and a CVA. The patient's grandmother in the maternal side has a histo ry of myocardial infarction. The patient's aunt in the paternal side has a history of diabetes. SOCIAL HISTORY: The patient usually lives in [place] with her grandson. The patient's one of the so n live very close to her. The patient has a very strong family support and voodoo support in [place] . The patient denies any drug or EtOH or tobacco abuse. She is very active. She drinks 2 cups of t ea a day. ALLERGIES: She is allergic to LATEX. PATIENT HOME MEDICATIONS: Crestor 20 mg once a day, Plavix 75 mg once a day, Bromfed DM 5 mL every 4 hours as needed, metoprolol succinate 25 mg once a day, Keflex 250 mg 4 times a day for UTI. REVIEW OF SYSTEMS: A 12-point review of systems is negative, unless otherwise mentioned in the HPI. Prior to this admission, patient noticed having more dizziness for a couple weeks. The patient star nidhi having diarrhea with Keflex. PHYSICAL EXAMINATION: VITAL SIGNS: Blood pressure 154/91, temperature 98.5, pulse is 74 in sinus rhythm, respiratory rate 18, O2 saturation 97% with room air. GENERAL: The patient is alert, oriented x4, not in acute distress. The patient has mild speech diff iculties. HEAD: Normocephalic, atraumatic. EYES: Extraocular muscle movement intact. ENT AND MOUTH: Oral and nasal mucosa are moist without lesion. NECK: No JVD. Normal range of motion, supple. RESPIRATORY: Clear to auscultate bilaterally. No wheezing, no rales or rhonchi noted. CARDIOVASCULAR: Regular rate and rhythm, normal S1, S2. There are no S3, S4. No murmur, hives, thr ill noted. Carotid pulses are present without bruit or thrill. A 2+ pulses in the bilateral upper a nd lower extremities. No edema. ABDOMEN: Soft and nontender. No mass to palpate. Bowel sounds are present. SKIN: Warm and dry. No lesion, bruise or rash. NEUROLOGIC: Noted. MUSCULOSKELETAL: The patient able to move all extremities except right-sided weakness. NEUROLOGIC: The patient is alert, oriented x4, nonfocal. PSYCHIATRIC: The patient's mood was very appropriate. LABORATORY DATA: WBC 9.3, hemoglobin 13.2, hematocrit 38.8, platelet 224. Sodium 139, potassium 4.1 , BUN 14, creatinine 0.92. Magnesium 2.1, AST 23, ALT 16. Troponin prior to episode of V-tach on showed negative. ASSESSMENT AND PLAN: 1. Two episodes of V-tach, the longest one is 7 beat. During those episodes, patient was symptomati c. The patient's magnesium level was 2.1. Potassium level was 4.1. Echocardiogram shows normal and within the normal range. The patient does not have any stress test since 2013. It is possible that patient is going to have benefit from another cardiac stress test to see her cardiac status. The pa tient on metoprolol 50 mg twice a day and she is on aspirin 325 mg once a day and Plavix 75 mg once a day and heparin 5,000 units subcutaneous 3 times a day and Crestor 20 mg once a day. 2. CVA. Neurology Service following up with this patient. 3. Hypertension. The patient's blood pressure having stable with the current medication. She has b een on metoprolol tartrate 50 mg twice a day and clonidine 0.1 mg every 4 hours as needed. 4. Coronary artery disease with history of multiple stents. The patient's condition is stable at th is moment. The patient on the Plavix 75 mg once a day and aspirin 325 mg once a day. 5. Urinary tract infection. The patient had been on Cipro IV, which is managed by the patient's [facility] doctor. Thank you for allowing the Cardiology Service to participate in the care of this patient. We will fo llow along with the patient care team and make further recommendations as appropriate.
--- NOTE | 2018-07-18 08:17 | PDOC.CTH ---
<Elsie Holyl - Last Filed: 07/18/18 08:15> Cardiology Progress Note - Subjective the pt seen and examined. No overnight events. No cardiac complaints. She stated she feels weaker today than yesterday. - Objective Vital Signs Temp Pulse Resp BP BP Pulse Ox 07/18/18 07:42 98.9 F 73 18 130/58 L 92 L 07/18/18 04:00 98.1 F 75 15 144/66 H 92 L 07/18/18 00:00 97.8 F 71 19 150/67 H 97 Weight 161 lb 07/17/18 07/18/18 07/19/18 06:59 06:59 06:59 Intake Total 100 1910 Balance 100 1910 - Physical Examination General/Neuro: alert & oriented x3 Neck: no JVD present Lungs: CTA Heart: RRR Abdomen: soft Extremities: other: (No edema) - Telemetry Telemetry Rhythm: SR - Labs Result Diagrams: 07/16/18 04:50 07/17/18 08:47 Troponin/CKMB CK-MB (CK-2) 1.7 ng/mL (0-6.6) 07/15/18 11:20 Troponin I Less than 0.010 ng/mL (< 0.028) 07/15/18 17:35 - Assessment/Plan 1. S/p NSVT - NO recurrent event since last episodes. Possible changing Cipro, ABX for UTI, to different ABX to reduce the risk of SVT? 2. CVA with Rt side weakness - managed by neurology service 3. CAD with hx of stent x2 - stable; on BBlocker, Plavix, ASA, Statin. 4. HTN urgency - stable 5. UTI - managed by PCP 6. Hyperlipidemia - on Statin MAR reviewed Review of Systems - Review of Systems Constitutional: reports: weakness EENTM: reports: no symptoms reported Respiratory: reports: no symptoms reported Cardiac (ROS): reports: no symptoms reported ABD/GI: reports: no symptoms reported : reports: no symptoms reported <Skye Aguilar - Last Filed: 07/18/18 17:33> Cardiology Progress Note - Objective Vital Signs Temp Pulse Resp BP Pulse Ox 07/18/18 16:00 97.9 F 69 16 135/64 92 L 07/18/18 12:00 98.6 F 71 18 162/73 H 92 L 07/18/18 08:25 92 L 07/18/18 07:42 98.9 F 73 18 130/58 L 92 L Weight 161 lb 07/17/18 07/18/18 07/19/18 06:59 06:59 06:59 Intake Total 100 1910 480 Balance 100 1910 480 - Labs Result Diagrams: 07/16/18 04:50 07/17/18 08:47 Troponin/CKMB CK-MB (CK-2) 1.7 ng/mL (0-6.6) 07/15/18 11:20 Troponin I Less than 0.010 ng/mL (< 0.028) 07/15/18 17:35 - Assessment/Plan pt. seen and eval. by me. I agreee with the A/P by the [employer] DIPPER.Chest clear. RRR. No cardiac complaints.
[2018-07-18] MEDS: Aspirin 325 mg Enteric Coated Tablet PO SCH (10:28)
[2018-07-18] MEDS: Clopidogrel Bisulfate 75 MG TAB PO SCH (10:28)
[2018-07-18] MEDS: Rosuvastatin 20 MG TAB PO SCH (10:28)
[2018-07-18] MEDS: Saccharomyces boulardii 250 MG CAP PO SCH (10:28)
[2018-07-18] MEDS: Metoprolol Tartrate 50 MG TAB PO SCH ×2 (10:29→20:21)
[2018-07-18] MEDS: Heparin 5,000 UNITS/ML VIAL SC SCH ×3 (10:29→20:22)
[2018-07-18] MEDS: Ciprofloxacin Lactate/D5W 200 MG in Premix Bag 1 BAG IVPB SCH (10:29)
--- NOTE | 2018-07-18 13:48 | PDOC.PN ---
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 Feels weak and -: fatigued. Eating ok overall. Working with PT/OT/ST. - Objective Resuscitation Status: Resuscitation Status FULL:Full Resuscitation MAR Reviewed: Yes Vital Signs & Weight: Vital Signs (12 hours) Temp Pulse Resp BP BP Pulse Ox 07/18/18 12:00 98.6 F 71 18 162/73 H 92 L 07/18/18 07:42 98.9 F 73 18 130/58 L 92 L 07/18/18 04:00 98.1 F 75 15 144/66 H 92 L Weight Weight 161 lb I&O: 07/17/18 07/18/18 07/19/18 06:59 06:59 06:59 Intake Total 100 1910 Balance 100 1910 Result Diagrams: 07/16/18 04:50 07/17/18 08:47 Additional Labs: Laboratory Tests 07/18/18 04:41 Triglycerides 215 H Cholesterol 150 LDL Cholesterol, Calc 68 HDL Cholesterol 39 Radiology Reviewed by me: Yes (MRI brain - L pontine CVA) EKG Reviewed by me: Yes (Tele - SR) Phys Exam - Physical Examination Constitutional: NAD HEENT: PERRLA, sclera anicteric, oral pharynx no lesions Neck: no nodes, no JVD, supple, full ROM Respiratory: no wheezing, no rales, no rhonchi, clear to auscultation bilateral S1, S2 Cardiovascular: RRR (S), no significant murmur, no rub, gallop Gastrointestinal: soft, non-tender, no distention, positive bowel sounds Musculoskeletal: no edema, pulses present R hemiparesis, expressive aphasia Neurological: moves all 4 limbs Psychiatric: A&O x 3 Skin: normal turgor, cap refill <2 seconds Dx/Plan (1) Left-sided cerebrovascular accident (CVA) Code(s): I63.9 - CEREBRAL INFARCTION, UNSPECIFIED Status: Acute Comment: Continue ASA/Plavix, Crestor, stroke protocol, Rehab screen (2) Tachyarrhythmia Code(s): R00.0 - TACHYCARDIA, UNSPECIFIED Status: Acute Comment: ? etiology , stable currently, continue Metoprolol (3) UTI (urinary tract infection) Status: Acute Qualifiers: Urinary tract infection type: acute cystitis Hematuria presence: without hematuria Qualified Code(s): N30.00 - Acute cystitis without hematuria Comment: E. coli, switch to Bactrim DS BID (4) Hypertension Code(s): I10 - ESSENTIAL (PRIMARY) HYPERTENSION Status: Chronic Qualifiers: Hypertension type: essential hypertension Qualified Code(s): I10 - Essential (primary) hypertension Comment: Continue Metoprolol 50mg BID (5) Staghorn calculus Code(s): N20.0 - CALCULUS OF KIDNEY Status: Chronic Comment: Outpt mgmt, continue Bactrim for UTI - Plan plan discussed w/ family, continue antibiotics, PT/OT, manager social, speech therapy, out of bed/ambulate, DVT proph w/SCDs Stable currently -: Rehab screening -: Continue ASA/Plavix -: Continue Crestor -: OOB/ambulate with PT/OT * .
[2018-07-18] MEDS: Sulfameth/Trimethoprim DS 800-160mg TAB PO SCH (20:21)
[2018-07-19] MEDS: Heparin 5,000 UNITS/ML VIAL SC SCH ×3 (08:54→21:49)
[2018-07-19] MEDS: Saccharomyces boulardii 250 MG CAP PO SCH (08:55)
[2018-07-19] MEDS: Rosuvastatin 20 MG TAB PO SCH (08:55)
[2018-07-19] MEDS: Metoprolol Tartrate 50 MG TAB PO SCH ×2 (08:55→21:50)
[2018-07-19] MEDS: Clopidogrel Bisulfate 75 MG TAB PO SCH (08:55)
[2018-07-19] MEDS: Sulfameth/Trimethoprim DS 800-160mg TAB PO SCH ×2 (08:56→21:49)
[2018-07-19] MEDS: Aspirin 325 mg Enteric Coated Tablet PO SCH (08:59)
--- NOTE | 2018-07-19 13:24 | PDOC.CTH ---
Cardiology Progress Note - Subjective pt. seen and eval. by me. no cardiac complaints. Speech is still a little slurred and slow. right sided weakness. No arrythmias. - Objective Vital Signs Temp Pulse Resp BP BP Pulse Ox 07/19/18 12:00 97.4 F L 62 18 135/63 95 07/19/18 08:45 92 L 07/19/18 08:00 98.4 F 68 20 128/60 92 L 07/19/18 04:00 98.5 F 72 18 130/61 94 L Weight 161 lb 07/18/18 07/19/18 07/20/18 06:59 06:59 06:59 Intake Total 1910 920 480 Balance 1910 920 480 - Physical Examination General/Neuro: alert & oriented x3 Neck: no JVD present Lungs: CTA Heart: RRR Abdomen: NT/ND - Labs Result Diagrams: 07/16/18 04:50 07/17/18 08:47 Troponin/CKMB CK-MB (CK-2) 1.7 ng/mL (0-6.6) 07/15/18 11:20 Troponin I Less than 0.010 ng/mL (< 0.028) 07/15/18 17:35 - Assessment/Plan 1. S/p NSVT - NO recurrent event since last episodes. Possible changing Cipro, ABX for UTI, to different ABX to reduce the risk of SVT? 2. CVA with Rt side weakness - managed by neurology service 3. CAD with hx of stent x2 - stable; on BBlocker, Plavix, ASA, Statin. 4. HTN urgency - stable 5. UTI - managed by PCP 6. Hyperlipidemia - on Statin MAR reviewed Cardiac status is stable. No further V-tach. No further cardiac workup at this time. normal EF. I will sign off. if any further cardiac issues then please consult again.
--- NOTE | 2018-07-19 14:17 | PDOC.PN ---
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 Rehab -: screening in progress with final approval pending. - Objective Resuscitation Status: 07/19/18 12:12 Resuscitation Status Routine Resuscitation Status: FULL: Full Resuscitation Discussed with: per previous order MAR Reviewed: Yes Vital Signs & Weight: Vital Signs (12 hours) Temp Pulse Resp BP BP Pulse Ox 07/19/18 12:00 97.4 F L 62 18 135/63 95 07/19/18 08:45 92 L 07/19/18 08:00 98.4 F 68 20 128/60 92 L 07/19/18 04:00 98.5 F 72 18 130/61 94 L Weight Weight 161 lb I&O: 07/18/18 07/19/18 07/20/18 06:59 06:59 06:59 Intake Total 1910 920 580 Balance 1910 920 580 Result Diagrams: 07/16/18 04:50 07/17/18 08:47 EKG Reviewed by me: Yes (Tele - SR) Phys Exam - Physical Examination Constitutional: NAD HEENT: PERRLA, sclera anicteric, oral pharynx no lesions Neck: no nodes, no JVD, supple, full ROM Respiratory: no wheezing, no rales, no rhonchi, clear to auscultation bilateral S1, S2 Cardiovascular: RRR, no significant murmur, no rub, gallop Gastrointestinal: soft, non-tender, no distention, positive bowel sounds Musculoskeletal: no edema, pulses present R hemiparesis, expressive dysphasia Neurological: normal sensation Skin: normal turgor, cap refill <2 seconds Dx/Plan (1) Left-sided cerebrovascular accident (CVA) Code(s): I63.9 - CEREBRAL INFARCTION, UNSPECIFIED Status: Acute Comment: Continue ASA/Plavix, Crestor, stroke protocol, Rehab screen in progress (2) Tachyarrhythmia Code(s): R00.0 - TACHYCARDIA, UNSPECIFIED Status: Acute Comment: ? etiology , stable currently, continue Metoprolol (3) UTI (urinary tract infection) Status: Acute Qualifiers: Urinary tract infection type: acute cystitis Hematuria presence: without hematuria Qualified Code(s): N30.00 - Acute cystitis without hematuria Comment: E. coli, switch to Bactrim DS BID (4) Hypertension Code(s): I10 - ESSENTIAL (PRIMARY) HYPERTENSION Status: Chronic Qualifiers: Hypertension type: essential hypertension Qualified Code(s): I10 - Essential (primary) hypertension Comment: Continue Metoprolol 50mg BID (5) Staghorn calculus Code(s): N20.0 - CALCULUS OF KIDNEY Status: Chronic Comment: Outpt mgmt, continue Bactrim for UTI - Plan plan discussed w/ family, continue antibiotics, PT/OT, social services analyst, speech therapy, out of bed/ambulate, DVT proph w/SCDs Stable currently -: Continue dual anti-platelet therapy -: PT/OT/ST -: Rehab screening in progress -: Continue Metoprolol 50mg BID * Likely transfer to Rehab in 24-48h
[2018-07-19] MEDS: Loperamide HCl 2 MG CAP PO PRN (15:38)
[2018-07-20] MEDS: Rosuvastatin 20 MG TAB PO SCH (11:22)
[2018-07-20] MEDS: Saccharomyces boulardii 250 MG CAP PO SCH (11:22)
[2018-07-20] MEDS: Heparin 5,000 UNITS/ML VIAL SC SCH (11:22)
[2018-07-20] MEDS: Metoprolol Tartrate 50 MG TAB PO SCH (11:23)
[2018-07-20] MEDS: Sulfameth/Trimethoprim DS 800-160mg TAB PO SCH (11:23)
[2018-07-20] MEDS: Aspirin 325 mg Enteric Coated Tablet PO SCH (11:23)
[2018-07-20] MEDS: Clopidogrel Bisulfate 75 MG TAB PO SCH (11:27)
[2018-07-20 11:38] VITALS: BP 117/80; TEMP 97.6
[2018-07-20] MEDS: Loperamide HCl 2 MG CAP PO PRN (13:59)
--- NOTE | 2018-07-22 18:31 | DIS ---
DATE OF ADMISSION: 07/16/2018 DATE OF DISCHARGE: 07/20/2018 DISCHARGE DIAGNOSES: 1. 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 2. Right hemiparesis. 3. Expressive dysphasia. 4. Tachyarrhythmia, resolved. 5. Urinary tract infection with Escherichia coli. 6. Hypertension, stable. 7. Chronic staghorn calculus. CONSULTATIONS: 1. Dr. Aguilar with Cardiology Service. 2. Dr. Delatorre with Urology Service. 3. with Neurology Service. PERTINENT LABORATORY DATA AND IMAGING STUDIES: Basic metabolic profile is within normal limits. Magnesium 2.2. LFTs within normal limits. Troponin-I negative x3. BNP 65. Lipase 13. Total cholesterol 150, triglycerides 215, HDL 39, LDL 68. CBC within normal limits. Urine culture, dated 07/14/2018, showed greater than 100,000 colonies of E coli, pansensitive. C difficile antigen and toxin, dated 07/16/2018, negative. Stool culture, dated 07/16/2018, showed normal enteric karen. CT of the brain without contrast, dated 07/15/2018, showed no acute intracranial process, chronic small vessel ischemic changes noted bilaterally. Portable chest x-ray, dated 07/15/2018, showed no acute cardiopulmonary process. Renal ultrasound, dated, 07/15/2018, showed right-sided nephrolithiasis with numerous right renal calculi, no hydronephrosis. Carotid Doppler study, dated 07/15/2018, showed no hemodynamically significant stenosis. CT of the abdomen and pelvis, dated 07/16/2018, showed near-complete casting of the right renal collecting system due to calculus. No left-sided renal calculus noted. MRI of the brain, dated 07/16/2018, showed multifocal anterior and posterior left-sided pontine infarction. 2D transthoracic echocardiogram, dated 07/16/2018, showed ejection fraction of 60% to 65%. CT of the brain without contrast, dated 07/17/2018, showed evolving pontine infarcts. Vascular ultrasound, dated 07/17/2018, showed no evidence for DVT in the right upper extremity. HOSPITAL COURSE: The patient was admitted to the stroke unit after initially presenting with dizziness, lightheadedness, generalized weakness, and dysarthria. The patient underwent extensive evaluation with multiple imaging modalities during her hospital course with CT imaging showing evidence of left pontine infarct. The patient underwent general stroke protocol and placed on aspirin therapy in addition to Plavix due to chronic Plavix therapy prior to admission. The patient was evaluated per stroke protocol including neurology consultation. The patient was given general supportive management and was deemed an appropriate candidate for ongoing inpatient rehabilitation due to persistent right-sided hemiparesis and mild expressive dysphasia. MRI of the brain did confirm evidence of left pontine infarct, and the patient continued on general stroke protocol throughout her hospital course. The patient was also discovered with urinary tract infection with E coli species, pansensitive, treated initially with Rocephin and transitioning to Bactrim to complete an 8-day course of therapy. The patient also underwent evaluation for right staghorn calculus by Urology Service; however, no specific acute intervention recommended, and likely conservative medical management on an outpatient basis. The patient overall remained clinically stable with general supportive management, tolerating oral intake, voiding appropriately, and ambulating short distances with assistance from physical and occupational therapy. The patient overall clinically stable. I have examined the patient at the time of discharge and discussed followup instructions. The patient verbalized understanding and in agreement. I write for discharge to inpatient rehabilitation on 07/20/2018. DISCHARGE MEDICATIONS: 1. Plavix 75 mg 1 tablet p.o. daily. 2. Crestor 20 mg p.o. daily. 3. Enteric-coated aspirin 325 mg p.o. daily. 4. Metoprolol tartrate 50 mg p.o. b.i.d. 5. Bactrim DS 1 tablet p.o. b.i.d. until 07/22/2018. FOLLOWUP: The patient will follow up with the inpatient rehabilitation team with [facility]. CONDITION ON DISCHARGE: Fair. ACTIVITY: Ad sienna, rolling walker with standby/contact guard assistance with high fall risk precautions. DIET: Heart healthy. CODE STATUS: Full. DISPOSITION: Discharged to [facility] on 07/20/2018. TOTAL TIME: Total time for preparing and coordinating discharge is 35 minutes. Job ID: [id number]
--- NOTE | 2018-07-23 20:19 | EKG ---
Test Reason : Blood Pressure : / mmHG Vent. Rate : 074 BPM Atrial Rate : 074 BPM P-R Int : 144 ms QRS Dur : 080 ms QT Int : 396 ms P-R-T Axes : 054 001 081 degrees QTc Int : 439 ms Sinus rhythm with Premature supraventricular complexes Nonspecific T wave abnormality Abnormal ECG Confirmed by JOSEPH FOOTE, WATSON ([id number]), editorial director JARON CHAVEZ ([id number]) on 07/23/2018 8:19:36 PM Referred By: Confirmed By:WATSON RUIZ MD
== END 2018-07-20 14:20 | DRG 65 ==
LOC: ERS 10:13 → 2SW 14:33 → OBSVTOIN 07-16 11:32 → 2SE 07-16 18:55
PROVIDERS: ADMIT Internal Medicine; ATTEND Internal Medicine
DX: I63.89 Other cerebral infarction (principal); G81.91 Hemiplegia, unspecified affecting right dominant side; N39.0 Urinary tract infection, site not specified; R47.02 Dysphasia; I10 Essential (primary) hypertension; B96.20 Unspecified Escherichia coli [E. coli] as the cause of diseases classified elsewhere; N20.0 Calculus of kidney; R00.0 Tachycardia, unspecified; Z79.02 Long term (current) use of antithrombotics/antiplatelets; Z79.82 Long term (current) use of aspirin; I25.10 Atherosclerotic heart disease of native coronary artery without angina pectoris; Z95.5 Presence of coronary angioplasty implant and graft; K21.9 Gastro-esophageal reflux disease without esophagitis; Z91.040 Latex allergy status; Z95.1 Presence of aortocoronary bypass graft; E78.5 Hyperlipidemia, unspecified; R19.7 Diarrhea, unspecified
CPT/HCPCS: 36415; 70450; 70551; 71045; 71046; 74176; 76770; 80048; 80053; 80061; 81003; 81015; 82553; 83690; 83735; 83880; 84484; 85025; 87045; 87046; 87077; 87086; 87186; 87324; 87328; 87329; 87449; 87899; 93005; 93306; 93880; 96360; 96361; 96365; G8978-GP-CK; G8979-GP-CI; G8987-GO-CK; G8988-GO-CI; G8996-GN-CJ; G8997-GN-CI; J0696; J0744; J1644

== ENCOUNTER 2019-12-29 20:44 | Observation (INO) | payer MEDICARE ==
[~2019-12-29 20:44] MED LIST: Iopamidol 370 76% 100 ML VIAL ONE
[2019-12-29 21:21] LABS: #Basophils 0.1 thou/uL (0.0-0.2); #Eosinphils 0.1 thou/uL (0.0-0.7); #Lymphocytes 3.1 thou/uL (1.20-3.40); #Monocytes 0.8 thou/uL (0.11-0.59); #Neutrophils 4.2 thou/uL (1.40-6.50); %Basophils 0.7 % (0.0-1.0); %Eosinophils 1.1 % (0.0-10.0); %Lymphocytes 37.1 % (21.0-51.0); %Neutrophils 51.1 % (42.0-75.0); Hemoglobin 12.8 g/dL (12.0-16.0); Mean Corpuscular HGB CONC 33.8 g/dL (32.0-36.0); Mean Corpuscular Hemoglobin 30.4 pg (27.0-31.0); Mean Corpuscular Volume 89.8 fL (78.0-98.0); Mean Platelet Volume 8.3 fL (7.4-10.4); Platelet Count 197 thou/uL (130-400); RBC Distribution Width 13.9 % (11.5-14.5); Red Blood Cell (RBC) Count 4.21 mill/uL (4.20-5.40); White Blood Cell (WBC) Count 8.2 thou/uL (4.8-10.8)
[2019-12-29 21:52] LABS: ALT (SGPT) 15 U/L (8-55); AST (SGOT) 17 U/L (5-34); Albumin 4.2 g/dL (3.4-4.8); Alkaline Phosphatase 79 U/L (40-110); Anion Gap 15 mmol/L (10-20); BUN (Urea Nitrogen) 19 mg/dL (9.8-20.1); Bilirubin, Total 0.5 mg/dL (0.2-1.2); Calc. Creatinine Clearance 0 mL/min (70-130); Calcium 9.1 mg/dL (7.8-10.44); Carbon Dioxide 23 mmol/L (23-31); Chloride 107 mmol/L (98-107); Estimated GFR-MDRD 58; Globulin 2.9 g/dL (2.4-3.5); Glucose 128 mg/dL (83-110); Lipase 18 U/L (8-78); Potassium 3.8 mmol/L (3.5-5.1); Protein, Total 7.1 g/dL (6.0-8.3); Sodium 141 mmol/L (136-145)
--- NOTE | 2019-12-29 22:23 | CT ---
CT abdomen and pelvis with IV contrast HISTORY: Abdominal pain. Vomiting. FINDINGS: Minimal atelectasis at the lung bases. Calcified granulomata at the lung bases and the abdo elizabeth organs consistent with healed granulomatous disease. No evidence of bowel obstruction or inflammation. Large staghorn calculus of the right kidney is present without hydronephrosis. Unchanged in appearanc e from the prior study. Urinary bladder is decompressed. Venous congestion of the pelvic and left ovarian veins now more apparent. No aggressive process evide nt. Postoperative and degenerative changes of the lumbar spine. IMPRESSION : Large nonobstructing right renal staghorn calculus is stable. No acute abnormalities are demonstrated.
--- NOTE | 2019-12-29 23:26 | CT ---
CT head noncontrast HISTORY: Syncope. Vomiting. COMPARISON: 07/17/2018. FINDINGS: There is no evidence of acute intracranial hemorrhage or infarct. Diffuse cortical atrophy and chronic ischemic small vessel disease have progressed since the prior exam. There is no mass effect or shift of midline structures. Some contrast material remains within the vas cular structures from recent CT abdomen. Visualized paranasal sinuses remain well aerated. IMPRESSION : Chronic ischemic small vessel disease and diffuse cortical atrophy. No acute intracranial abnormalities are demonstrated.
[2019-12-30] MEDS ORDERED: Acetaminophen 325 MG TAB PO PRN (00:24)
[2019-12-30] MEDS ORDERED: Ondansetron ODT 4 MG TAB PO PRN (00:24)
[2019-12-30] MEDS ORDERED: Ondansetron PF 4 MG/2 ML Vial IVP PRN (00:24)
[2019-12-30 00:27] LABS: Bilirubin Negative (Negative); Blood, Urine Trace (Negative); Clarity Clear (Clear); Glucose, Urine (Dipstick) Normal (Negative); Leukocyte 500 Leu/uL (Negative); Nitrite 2+ (Negative); Protein, Urine (Dipstick) Negative (Neg-Trace); Squamous Epithelial 0-3 HPF (0-3); Urobilinogen Normal mg/dL (Less than 2); WBC/HPF Greater than 50 HPF (0-3)
[2019-12-30 00:28] LABS: Bacteria/HPF 1+ HPF (None Seen)
--- NOTE | 2019-12-30 00:33 | PDOC.HHP ---
Hospitalist HPI - History of Present Illness nausea and vomiting History of Present Illness: Case of an 89y/o female with pmhx of cad, htn, hyperlipidemia, hx of stroke w residual R sided weakness who comes to hospital due to intractable nause and vomiting. patient refers she was on her usual state of health until today when while washing tv she started with nausea and vomiting, she refers about 4 -6 episodes at home and 2-3 at the ed. vomit was decribed as food content, denied bile or blood, pt denies eating anything out of the ordinary, denies chest pain palpitation or diaphoresis, also denies fever chills diarrhea, melena hematochezia or dysuria. of note patient's son was buried today and patient has been under great stress. Hospitalist ROS - Review of Systems All other systems reviewed; all pertinent +/- noted in HPI/Subj Hospitalist History - Past Medical History Cardiac: reports: CAD, HTN, Hyperlipidemia Pulmonary: reports: CVA/TIA/stroke, heart attack, high cholesterol, hypertension - Past Surgical History Past Surgical History: reports: no pertinent history - Family History Family History: reports: cancer, cardiac disorder, cerebrovascular accident, diabetes mellitus - Social History Smoking Status: Never smoker Alcohol: reports: None Drugs: reports: none Living Situation: With Family Activity level: independent ambulation - Exam General Appearance: NAD Eye: PERRL, anicteric sclera ENT: normocephalic atraumatic, no oropharyngeal lesions, moist mucosa Neck: supple, symmetric, no JVD, no thyromegaly Heart: RRR, no murmur, no gallops, no rubs Respiratory: CTAB, no wheezes, no rales, no ronchi, normal chest expansion Gastrointestinal: soft, non-tender, non-distended, normal bowel sounds Extremities: no cyanosis, no edema Skin: normal turgor, no lesions, no rashes Neurological: cranial nerve grossly intact, normal sensation to touch, no new deficit Musculoskeletal: normal tone, normal strength, no muscle wasting Psychiatric: normal affect, normal behavior, A&O x 3 Hospitalist Results - Labs Result Diagrams: 12/29/19 21:08 12/29/19 21:08 Lab results: WBC 8.2 thou/uL (4.8-10.8) 12/29/19 21:08 Hgb 12.8 g/dL (12.0-16.0) 12/29/19 21:08 Hct 37.8 % (36.0-47.0) 12/29/19 21:08 MCV 89.8 fL (78.0-98.0) 12/29/19 21:08 Plt Count 197 thou/uL (130-400) 12/29/19 21:08 Neutrophils % 51.1 % (42.0-75.0) 12/29/19 21:08 Sodium 141 mmol/L (136-145) 12/29/19 21:08 Potassium 3.8 mmol/L (3.5-5.1) 12/29/19 21:08 Chloride 107 mmol/L (98-107) 12/29/19 21:08 Carbon Dioxide 23 mmol/L (23-31) 12/29/19 21:08 BUN 19 mg/dL (9.8-20.1) 12/29/19 21:08 Creatinine 0.91 mg/dL (0.6-1.1) 12/29/19 21:08 Glucose 128 mg/dL (83-110) H 12/29/19 21:08 Calcium 9.1 mg/dL (7.8-10.44) 12/29/19 21:08 Total Bilirubin 0.5 mg/dL (0.2-1.2) 12/29/19 21:08 AST 17 U/L (5-34) 12/29/19 21:08 ALT 15 U/L (8-55) 12/29/19 21:08 Alkaline Phosphatase 79 U/L (40-110) 12/29/19 21:08 Troponin I 0.011 ng/mL (< 0.028) 12/29/19 21:08 Serum Total Protein 7.1 g/dL (6.0-8.3) 12/29/19 21:08 Albumin 4.2 g/dL (3.4-4.8) 12/29/19 21:08 Lipase 18 U/L (8-78) 12/29/19 21:08 Urine Ketones Negative mg/dL (Negative) 12/29/19 23:00 Urine Blood Trace (Negative) A 12/29/19 23:00 Urine Nitrite 2+ (Negative) A 12/29/19 23:00 Ur Leukocyte Esterase 500 Deena/uL (Negative) A 12/29/19 23:00 Urine RBC 4-6 HPF (0-3) A 12/29/19 23:00 Urine WBC Greater than 50 HPF (0-3) A 12/29/19 23:00 Ur Squamous Epith Cells 0-3 HPF (0-3) 12/29/19 23:00 Urine Bacteria 1+ HPF (None Seen) A 12/29/19 23:00 - EKG Interpretation EKG: nsr - Radiology Interpretation CT scan - abdomen Additional Comment: stable R non obstructing staghorn calculus CT scan - head Additional Comment: no acute pathology, chronic changes Hospitalist H&P A/P - Problem (1) Intractable nausea and vomiting Code(s): R11.2 - NAUSEA WITH VOMITING, UNSPECIFIED Status: Acute (2) History of stroke with residual deficit Code(s): I69.30 - UNSPECIFIED SEQUELAE OF CEREBRAL INFARCTION Status: Acute (3) CAD (coronary artery disease) Code(s): I25.10 - ATHSCL HEART DISEASE OF [place] CORONARY ARTERY W/O ANG PCTRS Status: Chronic (4) Hypertension Code(s): I10 - ESSENTIAL (PRIMARY) HYPERTENSION Status: Chronic Qualifiers: Hypertension type: essential hypertension Qualified Code(s): I10 - Essential (primary) hypertension - Plan Plan: intractable nause and vomiting - unclear source, now improved. could be related to stress of son's . will admit as obs and watch overnight in tele. will run serial troponins, initial negative, and hydrate. abd ct wnl, heat ct wnl, lipase normal. will provide symptomatic tx cad - continue home meds hx of stroke - on adequate secondary prevention with antiplatelets and statin, continue home tx htn - continue home meds, adjust as necessary
[2019-12-30 00:46] VITALS: BMI 29.9
[2019-12-30 01:18] LABS: Troponin I 0.019 ng/mL (< 0.028)
[2019-12-30] MEDS: Sodium Chloride 0.9% 1,000 ML IV SCH ×2 (01:46→14:39)
[2019-12-30 04:02] LABS: Troponin I 0.012 ng/mL (< 0.028)
[2019-12-30] MEDS ORDERED: Clopidogrel Bisulfate 75 MG TAB PO SCH (09:00)
[2019-12-30] MEDS ORDERED: Rosuvastatin 20 MG TAB PO SCH (09:00)
[2019-12-30] MEDS ORDERED: Famotidine 20 MG TAB PO SCH (09:00)
[2019-12-30] MEDS ORDERED: Aspirin 325 mg Enteric Coated Tablet PO SCH (09:00)
[2019-12-30] MEDS ORDERED: Enoxaparin Sodium 40 MG/0.4 ML SYRINGE SC SCH (09:00)
[2019-12-30] MEDS ORDERED: Metoprolol Tartrate 50 MG TAB PO SCH (09:00)
[2019-12-30 11:07] VITALS: BP 147/64; TEMP 97.8
[2019-12-30] MEDS ORDERED: cefTRIAXone\\ROCEPHIN 2 GM in Sodium Chloride 0.9% 100 ML IVPB SCH (13:00)
[2019-12-31] MEDS ORDERED: Famotidine 20 MG TAB PO SCH (09:00)
--- NOTE | 2020-01-01 10:09 | DIS ---
DATE OF ADMISSION: 12/29/2019 DATE OF DISCHARGE: 12/30/2019 DISCHARGE DIAGNOSES: 1. Urinary tract infection, organism not identified. 2. Intractable nausea and vomiting, resolved. 3. Coronary artery disease, chronic and stable. 4. Hypertension, stable. CONSULTATIONS: None. PERTINENT LABORATORY AND X-RAY FINDINGS: Basic metabolic profile within normal limits. Troponin I negative x3. TSH 0.91. Lipase 18. LFTs within normal limits. CBC within normal limits. Urinalysis positive for nitrite and leukocyte esterase with greater than 50 to [id number] wbc's per high-power field. CT of the brain without contrast dated 12/29/2019 showed chronic ischemic white matter changes with diffuse cortical atrophy. CT of the abdomen and pelvis dated 12/29/2019 showed large nonobstructing right renal staghorn calculus. No change in appearance of the calculus in comparison with previous study. HOSPITAL COURSE: The patient was observed on the telemetry unit after initially presenting with intractable nausea and vomiting. The patient underwent metabolic screening in addition to radiographic evaluation, including CT imaging of the brain and abdomen and pelvis showing no acute process. The patient was given IV fluids in addition to antiemetics with resolution of symptoms. The patient was noted with urinalysis concerning for infectious process and initiated on Rocephin 2 g IV x1 dose. Current recommendations are to transition to Levaquin 500 mg daily to complete a 5-day course of therapy. Suspecting multifactorial process contributing to the patient's presentation including the recent of her son. Suspect emotional distress in conjunction with urinary tract infection was the underlying culprit. I have examined the patient at the time of discharge and discussed followup instructions. The patient verbalized understanding and agreement, ready for discharge on 12/30/2019. DISCHARGE MEDICATIONS: 1. Vitamin C 1 tablet p.o. daily. 2. Cinnamon bark 500 mg p.o. daily. 3. Plavix 75 mg p.o. daily. 4. Vitamin B12 of 1000 mcg p.o. daily. 5. Gabapentin 200 mg p.o. t.i.d. 6. Multivitamin 1 tablet p.o. daily. 7. Crestor 20 mg p.o. q.h.s. 8. Tizanidine 2 mg p.o. b.i.d. p.r.n. 9. Coenzyme Q10 of 30 mg p.o. daily. 10. Vitamin E 1000 units p.o. daily. 11. Enteric-coated aspirin 325 mg p.o. daily. 12. Levaquin 500 mg p.o. daily x4 days. 13. Metoprolol tartrate 50 mg p.o. b.i.d. FOLLOWUP: The patient may follow up with her primary care provider in the [place], [place] area after discharge. CONDITION ON DISCHARGE: Stable. ACTIVITY: Ad-sienna. Rolling walker with standby assistance. DIET: Heart healthy. CODE STATUS: Do not attempt resuscitation. DISPOSITION: To home on 12/30/2019. Job ID: [id number]
--- NOTE | 2020-01-06 11:53 | EKG ---
Test Reason : Blood Pressure : / mmHG Vent. Rate : 070 BPM Atrial Rate : 070 BPM P-R Int : 196 ms QRS Dur : 084 ms QT Int : 424 ms P-R-T Axes : 054 -08 040 degrees QTc Int : 457 ms Normal sinus rhythm Minimal voltage criteria for LVH, may be normal variant Borderline ECG Confirmed by ADRIANA BERRIOS ([id number]), editor house organ LAUREN MASSEY ([id number]) on 01/06/2020 11:52:41 AM Referred By: Confirmed By:ADRIANA Beach
== END 2019-12-30 15:24 | disposition home or self-care (01) ==
LOC: ERS 20:44 → 2NO 23:24
PROVIDERS: ADMIT Internal Medicine; ATTEND Internal Medicine
DX: R11.2 Nausea with vomiting, unspecified (principal); N39.0 Urinary tract infection, site not specified; N20.0 Calculus of kidney; I10 Essential (primary) hypertension; I25.10 Atherosclerotic heart disease of native coronary artery without angina pectoris; E78.5 Hyperlipidemia, unspecified; E78.00 Pure hypercholesterolemia, unspecified; I63.9 Cerebral infarction, unspecified; G81.90 Hemiplegia, unspecified affecting unspecified side; Z79.899 Other long term (current) drug therapy; Z91.040 Latex allergy status; Z91.048 Other nonmedicinal substance allergy status
CPT/HCPCS: 70450; 74177; 80053; 83690; 84443; 84484 ×3; 85025; 93005; 96360; 96361; 96372; 96374; 99285; G0378 ×2; 36415; 81003; 81015; J0696; J1650; J3490; Q9967

== ENCOUNTER 2020-01-03 12:22 | Emergency (ER) | payer MEDICARE ==
[2020-01-03] MEDS ORDERED: Ondansetron PF 4 MG/2 ML Vial ONE (13:08)
[2020-01-03 13:16] LABS: #Eosinphils 0.1 thou/uL (0.0-0.7); #Lymphocytes 2.1 thou/uL (1.20-3.40); #Monocytes 0.8 thou/uL (0.11-0.59); #Neutrophils 5.8 thou/uL (1.40-6.50); %Basophils 0.4 % (0.0-1.0); %Eosinophils 0.9 % (0.0-10.0); %Lymphocytes 23.6 % (21.0-51.0); %Monocytes 8.8 % (0.0-10.0); %Neutrophils 66.3 % (42.0-75.0); Hemoglobin 12.5 g/dL (12.0-16.0); Mean Corpuscular HGB CONC 32.9 g/dL (32.0-36.0); Mean Corpuscular Hemoglobin 29.5 pg (27.0-31.0); Mean Corpuscular Volume 89.9 fL (78.0-98.0); Mean Platelet Volume 8.8 fL (7.4-10.4); Platelet Count 169 thou/uL (130-400); RBC Distribution Width 13.7 % (11.5-14.5); Red Blood Cell (RBC) Count 4.22 mill/uL (4.20-5.40); White Blood Cell (WBC) Count 8.7 thou/uL (4.8-10.8)
[2020-01-03 13:36] LABS: ALT (SGPT) 18 U/L (8-55); AST (SGOT) 23 U/L (5-34); Albumin 3.8 g/dL (3.4-4.8); Alkaline Phosphatase 80 U/L (40-110); Anion Gap 14 mmol/L (10-20); BUN (Urea Nitrogen) 12 mg/dL (9.8-20.1); Bilirubin, Total 0.5 mg/dL (0.2-1.2); Calc. Creatinine Clearance 0 mL/min (70-130); Carbon Dioxide 23 mmol/L (23-31); Chloride 106 mmol/L (98-107); Estimated GFR-MDRD 59; Globulin 3.1 g/dL (2.4-3.5); Glucose 104 mg/dL (83-110); Potassium 4.3 mmol/L (3.5-5.1); Protein, Total 6.9 g/dL (6.0-8.3); Sodium 139 mmol/L (136-145)
[2020-01-03 15:04] LABS: Bilirubin Negative (Negative); Blood, Urine Negative (Negative); Clarity Clear (Clear); Glucose, Urine (Dipstick) Normal (Negative); Leukocyte 250 Leu/uL (Negative); Nitrite Negative (Negative); Protein, Urine (Dipstick) Negative (Neg-Trace); Squamous Epithelial 0-3 HPF (0-3); Urobilinogen Normal mg/dL (Less than 2); WBC/HPF 21-50 HPF (0-3)
[2020-01-03 15:05] LABS: Bacteria/HPF 1+ HPF (None Seen)
--- NOTE | 2020-01-03 15:34 | CT ---
CT OF THE BRAIN WITHOUT CONTRAST: 01/03/20 COMPARISON: 12/29/19 HISTORY: Near syncope with vomiting and diarrhea. TECHNIQUE: Multiple contiguous axial images were obtained in a CT of the brain without contrast. FINDINGS: There are diffuse scattered hypodensities in the subcortical and periventricular white matter, likely secondary to small vessel ischemic disease. No large confluent infarction is seen. There is no evide nce of hydrocephalus, intracranial hemorrhage or extra-axial fluid collections. The calvarium and overlying soft tissues are unremarkable. The visualized paranasal sinuses and masto id air cells are well aerated. IMPRESSION: No evidence of acute intracranial abnormality. POS: EAA
== END 2020-01-03 17:08 | disposition home or self-care (01) ==
LOC: ERS 12:22
DX: E86.0 Dehydration (principal); K21.9 Gastro-esophageal reflux disease without esophagitis; E78.5 Hyperlipidemia, unspecified; I10 Essential (primary) hypertension; Z86.73 Personal history of transient ischemic attack (TIA), and cerebral infarction without residual deficits; Z79.899 Other long term (current) drug therapy; Z79.82 Long term (current) use of aspirin
CPT/HCPCS: 36415; 70450; 80053; 81003; 81015; 84484; 85025; 93005; 96361; 96374; J2405